=== PATIENT | female | born 1950 | race Caucasian/White ===

== ENCOUNTER 2018-04-18 13:00 | Day surgery (SDC) | payer OTHER ==
[2018-04-18] MEDS ORDERED: LR 1,000 ML IV ONE (13:12)
--- NOTE | 2018-04-18 14:33 | PDANEPAE ---
ANE History of Present Illness rectal polyp, here for removal ANE Past Medical History - Cardiovascular History Hx Hypertension: No Hx Arrhythmias: No Hx Chest Pain: No Hx Coronary Artery / Peripheral Vascular Disease: No Hx CHF / Valvular Disease: No Hx Palpitations: No - Pulmonary History Hx COPD: No Hx Asthma/Reactive Airway Disease: No Hx Recent Upper Respiratory Infection: No Hx Oxygen in Use at Home: No Hx Sleep Apnea: No Sleep Apnea Screening Result - Last Documented: Negative - Neurologic History Hx Cerebrovascular Accident: No Hx Seizures: No Hx Dementia: No - Endocrine History Hx Diabetes: No - Renal History Hx Renal Disorders: No - Liver History Hx Hepatic Disorders: No - Neurological & Psychiatric Hx Hx Neurological and Psychiatric Disorders: No - Cancer History Hx Cancer: No - Congenital Disorder History Hx Congenital Disorders: No - GI History Hx Gastrointestinal Disorders: No Gastrointestinal History Comment: COLON POLYP. ACID REFLUX OCCAS W/CERTAIN FOODS - Other Health History Other Health History: NEG - Chronic Pain History Chronic Pain: No - Surgical History Prior Surgeries: R TKA. COLONOSCOPY ANE Review of Systems Review of Systems: - Exercise capacity METS (RN): 4 METS ANE Patient History - Allergies Allergies/Adverse Reactions: No Known Allergies Allergy (Unverified 04/11/18 10:22) - Home Medications Home Medications: Multivitamin (*) 04/11/18 [Last Taken 04/13/18] - NPO status NPO Since - Liquids (Date): 04/18/18 NPO Since - Liquids (Time): 03:30 NPO Since - Solids (Date): 04/17/18 NPO Since - Solids (Time): 08:30 - Smoking Hx Smoking Status: Never smoked - Family Anes Hx Family Hx Anesthesia Complications: NEG ANE Labs/Vital Signs - Vital Signs Blood Pressure: 153/93 Heart Rate: 79 Respiratory Rate: 16 O2 Sat (%): 91 Height: 157.48 cm Weight: 79.379 kg ANE Physical Exam - Airway Neck exam: FROM Mallampati Score: Class 2 Mouth exam: poor dentition - Pulmonary Pulmonary: no respiratory distress - Cardiovascular Cardiovascular: regular rate and rhythym - ASA Status ASA Status: II ANE Anesthesia Plan Anesthesia Plan: GA with mask
[2018-04-18] MEDS ORDERED: PROPOFOL 200 MG/20 ML VIAL ONE ×3 (15:10→15:11)
--- NOTE | 2018-04-18 15:10 | PDGENHP ---
History & Physical Chief Complaint: rectal polyp History of Present Illness: 67 year old female presents for possible EMR of a complex rectal polyp Pertinent Past, Social, Family History: PMHx: colon polyps. SoHx: No cigs Relevant Physical Exam: HEENT: anicterc. Cv: RRR +s1s2. Lungs: CTAB. Abd: soft, nt, + bs Cardiorespiratory Assessment: ASA 2
[2018-04-18] MEDS ORDERED: PROPOFOL/EMULSION 500 MG/50 ML BOTTLE IV ONE (15:58)
[2018-04-18] MEDS ORDERED: oxyCODONE IR 5 MG TAB PO PRN (16:12)
[2018-04-18] MEDS ORDERED: NALOXONE HCL 0.4 MG/ML INJ IVP PRN (16:12)
[2018-04-18] MEDS ORDERED: HYDROCODONE/APAP 5/325 TAB PO PRN (16:12)
[2018-04-18] MEDS ORDERED: ACETAMINOPHEN 500 MG TAB PO PRN (16:12)
[2018-04-18] MEDS ORDERED: fentaNYL 100 MCG/2 ML INJ IVP PRN (16:12)
--- NOTE | 2018-04-18 16:14 | POSTANESTH ---
Post Anesthetic Evaluation Cardiovascular Status: Normal, Stable, Similar to Pre-Op Cond Respiratory Status: Normal, Stable, Similar to Pre-op Cond. Level of Consciousness/Mental Status: Can Participate in Eval, Alert and Oriented Pain Control: Adequate, Prn Tx Ordered Nausea/Vomiting Control: Adequate, Prn Tx Ordered Complications Possibly Related to Anesthesia: None Noted
[2018-04-18 16:31] VITALS: BP 112/76
--- NOTE | 2018-04-18 16:54 | GIREPORT ---
[facility] - Endoscopy Department Patient Name: Desirae Orourke Procedure Date: 04/18/2018 3:00 PM Patient Type: Outpatient Attending MD/ ER Physician: Tonny Yanez MD Procedure: Lower EUS Indications: Rectal polypoid lesion Patient Profile: 67 year old female presents for EUS/EMR of a complex rectal polypoid le erin. Providers: Tonny Yanez MD Medicines: Monitored Anesthesia Care Complications: No immediate complications. Estimated blood loss: Minimal. Description of Procedure: After obtaining informed consent, the endoscope was passed under direct vision. Throughout the procedure, the patient's blood pressure, pulse, and oxygen saturations were monitored continuously. The Endosonoscope was introduced through the anus and advanced to the sigmoid colon for ultrasound. The Colonoscope with irrigation channel was introduced thro ugh the anus and advanced to the sigmoid colon for ultrasound. The lower EU S was accomplished without difficulty. The patient tolerated the procedure we ll. The quality of the bowel preparation was good. The lower EUS was accomplished without difficulty. Findings: The perianal and digital rectal examinations were normal. Pertinent negatives include no palpable rectal lesions. Endoscopic Finding : A 3 mm polyp was found in the sigmoid colon. The polyp was sessile. Bio psies were taken with a cold forceps for histology. A 35 mm polyp was found in the rectum. The polyp was carpet-like and appeared to run close to the anus. The polyp was removed with a saline injection-lift technique using a hot snare. Approximately 10cc of fluid was injected for a lift. The polyp was removed with a piecemeal technique u sing a hot snare. APC was utilized on the edges. Resection and retrieval wer e complete. To prevent bleeding after mucosal resection, six hemostatic c lips were successfully placed. The whole defect could not be closed (distal end) due to its location. Endosonographic Finding : The rectum was normal. No lymph nodes were visualized with the ultrasound probe in the perirec nona region and in the sigmoid region. Estimated Blood Loss: Estimated blood loss was minimal. Post Op Diagnosis: - One 3 mm polyp in the sigmoid colon. Biopsied. - One 35 mm polyp in the rectum, removed using injection-lift and a hot snare and removed piecemeal using a hot snare. Resected and retrieved. Clips were placed. - Endosonographic images of the rectum were unremarkable. - No lymph nodes were visualized and measured in the perirectal region and in the sigmoid region. Recommendation: - Discharge patient to home (with escort). - Await path results. - Resume regular diet. - Continue present medications. - Repeat procedure dependent on pathology. - Thank you for allowing me to participate in the care of your patient. Attending Participation: I personally performed the entire procedure. Tonny Yanez MD Tonny Yanez MD 04/18/2018 4:54:41 PM This report has been signed electronicallyTonny Yanez MD Number of Addenda: 0 Note Initiated On: 04/18/2018 3:00 PM Total Procedure Duration Time 0 hours 49 minutes 15 seconds [email or web address]
== END 2018-04-18 16:56 | disposition home or self-care (01) ==
LOC: FSGY 13:00
PROVIDERS: ATTEND Internal Medicine Gastroenterology
DX: D12.8 Benign neoplasm of rectum (principal); K63.5 Polyp of colon
CPT/HCPCS: J2704

== ENCOUNTER 2018-08-22 10:33 | Day surgery (SDC) | payer OTHER ==
[2018-08-22] MEDS ORDERED: LR 1,000 ML IV ONE (12:10)
[2018-08-22] MEDS ORDERED: INDOMETHACIN 50 MG SUPP PR PRN (13:04)
--- NOTE | 2018-08-22 13:04 | PDGENHP ---
History & Physical Chief Complaint: phx polyps History of Present Illness: 67 year old female presents for surveillance of a complex polyp Pertinent Past, Social, Family History: See anesthesiology notes Relevant Physical Exam: HEENT: anicteric. Cv: RRR +s1s2. Lungs: CTAb. Abd; soft, nt, + bs Cardiorespiratory Assessment: ASA 3
[2018-08-22] MEDS ORDERED: fentaNYL 100 MCG/2 ML INJ ONE (13:07)
[2018-08-22] MEDS ORDERED: PROPOFOL/EMULSION 500 MG/50 ML BOTTLE IV ONE (13:08)
--- NOTE | 2018-08-22 13:11 | PDANEPAE ---
ANE History of Present Illness 67 year old female with history of polyps for colonoscopy. Otherwise healthy. ANE Past Medical History - Cardiovascular History Hx Hypertension: No Hx Arrhythmias: No Hx Chest Pain: No Hx Coronary Artery / Peripheral Vascular Disease: No Hx CHF / Valvular Disease: No Hx Palpitations: No - Pulmonary History Hx COPD: No Hx Asthma/Reactive Airway Disease: No Hx Recent Upper Respiratory Infection: No Hx Oxygen in Use at Home: No Hx Sleep Apnea: No Sleep Apnea Screening Result - Last Documented: Negative - Neurologic History Hx Cerebrovascular Accident: No Hx Seizures: No Hx Dementia: No - Endocrine History Hx Diabetes: No - Renal History Hx Renal Disorders: No - Liver History Hx Hepatic Disorders: No - Neurological & Psychiatric Hx Hx Neurological and Psychiatric Disorders: No - Cancer History Hx Cancer: No - Congenital Disorder History Hx Congenital Disorders: No - GI History Hx Gastrointestinal Disorders: Yes Gastrointestinal History Comment: COLON POLYP. ACID REFLUX OCCAS W/CERTAIN FOODS - Other Health History Other Health History: NEG - Chronic Pain History Chronic Pain: No - Surgical History Prior Surgeries: LUNA TOTAL KNEE'S. MULTIPLE PREV COLONOSCOPY. WITH POLYP REMVL ANE Review of Systems Review of systems is: negative Review of Systems: - Exercise capacity METS (RN): 4 METS ANE Patient History - Allergies Allergies/Adverse Reactions: No Known Allergies Allergy (Unverified 04/11/18 10:22) - Home Medications Home Medications: Multivitamin (*) DAILY 04/11/18 [Last Taken 04/13/18] - NPO status NPO Since - Liquids (Date): 08/22/18 NPO Since - Liquids (Time): 20:00 NPO Since - Solids (Date): 08/21/18 NPO Since - Solids (Time): 15:00 - Smoking Hx Smoking Status: Never smoked - Family Anes Hx Family Hx Anesthesia Complications: NEG ANE Labs/Vital Signs - Vital Signs Blood Pressure: 144/89 Heart Rate: 79 Respiratory Rate: 14 O2 Sat (%): 98 Height: 157.48 cm Weight: 81.647 kg ANE Physical Exam - Airway Neck exam: FROM Mallampati Score: Class 2 Mouth exam: dentures - Pulmonary Pulmonary: no respiratory distress - Cardiovascular Cardiovascular: regular rate and rhythym - ASA Status ASA Status: II ANE Anesthesia Plan Anesthesia Plan: MAC
[2018-08-22] MEDS ORDERED: NS 500 ML IV SCH (13:15)
--- NOTE | 2018-08-22 14:01 | POSTANESTH ---
Post Anesthetic Evaluation Cardiovascular Status: Normal, Stable Respiratory Status: Normal, Stable Level of Consciousness/Mental Status: Mildly Sleepy, Arousable Pain Control: Adequate, Prn Tx Ordered Nausea/Vomiting Control: Adequate, Prn Tx Ordered Complications Possibly Related to Anesthesia: None Noted
--- NOTE | 2018-08-22 14:13 | GIREPORT ---
[facility] - Endoscopy Department Patient Name: Desirae Orourke Procedure Date: 08/22/2018 1:08 PM Patient Type: Outpatient Attending MD/ ER Physician: Tonny Yanez MD Procedure: Colonoscopy Indications: High risk colon cancer surveillance: Personal history of colonic polyps Patient Profile: 67 year old female with a history of a complex rectal polyp presents fo r surveillance colonoscopy. Providers: Tonny Yanez MD Medicines: Monitored Anesthesia Care Complications: No immediate complications. Estimated blood loss: Minimal. Description of Procedure: After obtaining informed consent, the scope was passed under direct vis ion. Throughout the procedure, the patient's blood pressure, pulse, and oxyg en saturations were monitored continuously. The Colonoscope was introduced through the anus and advanced to the cecum, identified by appendiceal orifice and ileocecal valve. The colonoscopy was performed without difficulty. The patient tolerated the procedure well. The quality of th e bowel preparation was good. The ileocecal valve, appendiceal orifice, a nd rectum were photographed. The Colonoscope with irrigation channel was introduced through the anus and advanced to the cecum, identified by appendiceal orifice and ileocecal valve. Findings: The perianal and digital rectal examinations were normal. Pertinent negatives include no palpable rectal lesions. Diverticula were found in the sigmoid colon. A 7 mm polyp was found in the cecum. The polyp was sessile. The polyp w as removed with a hot snare. Resection and retrieval were complete. A 4 mm polyp was found in the sigmoid colon. The polyp was sessile. The polyp was removed with a cold biopsy forceps. Resection and retrieval w ere complete. A 5 mm polyp was found in the rectum. It appeared to be remnant polyp. The polyp was sessile. The polyp was removed with a piecemeal technique usi ng a cold biopsy forceps. Resection and retrieval were complete. Estimated Blood Loss: Estimated blood loss was minimal. Post Op Diagnosis: - Diverticulosis in the sigmoid colon. - One 7 mm polyp in the cecum, removed with a hot snare. Resected and retrieved. - One 4 mm polyp in the sigmoid colon, removed with a cold biopsy force ps. Resected and retrieved. - One 5 mm polyp in the rectum, removed piecemeal using a cold biopsy forceps. Resected and retrieved. Recommendation: - Discharge patient to home (with escort). - The signs and symptoms of potential delayed complications were discus sed with the patient. - Patient has a contact number available for emergencies. - Return to normal activities tomorrow. - Resume previous diet. - Continue present medications. - Repeat colonoscopy in 1 year for surveillance. - Await pathology results. - Thank you for allowing me to paricipate in the care of your patient. Attending Participation: I personally performed the entire procedure. Tonny Yanez MD Tonny Yanez MD 08/22/2018 2:12:49 PM This report has been signed electronicallyTonny Yanez MD Number of Addenda: 0 Note Initiated On: 08/22/2018 1:08 PM Total Procedure Duration Time 0 hours 24 minutes 58 seconds [email or web address]
[2018-08-22 14:23] VITALS: BP 124/88
== END 2018-08-22 14:40 | disposition home or self-care (01) ==
LOC: FSGY 10:33
PROVIDERS: ATTEND Internal Medicine Gastroenterology
DX: Z09 Encounter for follow-up examination after completed treatment for conditions other than malignant neoplasm (principal); D12.0 Benign neoplasm of cecum; D12.5 Benign neoplasm of sigmoid colon; K62.1 Rectal polyp; K57.30 Diverticulosis of large intestine without perforation or abscess without bleeding; Z86.010 Personal history of colon polyps; Z96.653 Presence of artificial knee joint, bilateral
CPT/HCPCS: J2704; J3010